=== PATIENT | male | born 1975 ===

== ENCOUNTER 2017-12-21 22:25 | Emergency (ER) | payer SELFPAY ==
[2017-12-21 22:29] VITALS: RESP 16; TEMP 97.6; O2SAT 97
--- NOTE | 2017-12-22 01:52 | C.PDOC ---
History Of Present Illness 42 y/o male, LARON, presents to the ED for ETOH intoxication. The patient admits to drinking earlier today. He denies any SI/HI. The patient is not awake or alert, inability to access medical status/complaints due to intoxication. Time Seen by Provider: 12/21/17 22:29 Chief Complaint (Nursing): Substance Abuse History Per: Patient History/Exam Limitations: intoxication Modifying Factor(s): Alcohol Recent travel outside of the [place]: No Past Medical History Reviewed: Historical Data, Nursing Documentation, Vital Signs Vital Signs: Last Vital Signs Temp 97.6 F 12/21/17 22:27 Pulse 95 H 12/21/17 22:27 Resp 16 12/21/17 22:27 BP 128/85 12/21/17 22:27 Pulse Ox 97 12/21/17 22:27 Family History: States: Unknown Family Hx - Social History Hx Alcohol Use: Yes Hx Substance Use: No (unknown) Review Of Systems Review Of Systems: ROS cannot be obtained secondary to pt's inabilty to answer questions. Constitutional: Negative for: Fever Physical Exam - Physical Exam Appears: Well, Non-toxic Skin: Normal Color, Warm, Dry Head: Atraumatic, Normacephalic Oral Mucosa: Moist Chest: Symmetrical Cardiovascular: Rhythm Regular, No Murmur Respiratory: Normal Breath Sounds, No Rales, No Rhonchi, No Wheezing Neurological/Psych: Other (no gross focal deficits) Gait: Unsteady ED Course And Treatment O2 Sat by Pulse Oximetry: 97 (RA) Pulse Ox Interpretation: Normal Medical Decision Making Medical Decision Making: Unable to access patient due to ETOH intoxication Disposition Counseled Patient/Family Regarding: Diagnosis - Disposition Referrals: [facility] [Outside] Disposition Time: 05:41 Condition: STABLE Instructions: Alcohol Abuse and Alcoholism (DC) Forms: [facility] (Bengali) - POA Present On Arrival: None - Clinical Impression Clinical Impression: Alcohol abuse - PA / OCCUPATIONAL HEALTH AND SAFETY ADVISER / Resident Statement MD/DO has reviewed & agrees with the documentation as recorded. - Scribe Statement The provider has reviewed the documentation as recorded by the Scribe (Lisa Alcantara) Provider Attestation: All medical record entries made by the Scribe were at my direction and personally dictated by me. I have reviewed the chart and agree that the record accurately reflects my personal performance of the history, physical exam, medical decision making, and the department course for this patient. I have also personally directed, reviewed, and agree with the discharge instructions and disposition.
[2017-12-22 02:55] VITALS: BP 111/68; PULSE 91
== END 2017-12-22 05:58 | disposition home or self-care (01) ==
LOC: C.ER 22:25
DX: F10.129 Alcohol abuse with intoxication, unspecified (principal)